=== PATIENT | male | born 2005 | race Two or more races ===

== ENCOUNTER 2025-01-24 17:59 | Emergency (ER) | payer MEDICAID ==
[~2025-01-24] VITALS: Ht 188 cm; Wt 97.6 kg
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
[2025-01-24 21:28] VITALS: BP 111/59; PULSE 86; RESP 16; TEMP 98.6; O2SAT 96
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
[2025-01-24] MEDS ORDERED: IBUP-1456 PO (21:42)
== END 2025-01-24 21:58 | disposition home or self-care (01) ==
LOC: ER 17:59
DX: S76.012A Strain of muscle, fascia and tendon of left hip, initial encounter (principal); S76.912A Strain of unspecified muscles, fascia and tendons at thigh level, left thigh, initial encounter; S50.01XA Contusion of right elbow, initial encounter; V89.2XXA Person injured in unspecified motor-vehicle accident, traffic, initial encounter; Y93.89 Activity, other specified; Y92.410 Unspecified street and highway as the place of occurrence of the external cause; Y99.8 Other external cause status
CPT/HCPCS: 73080; 73502

== ENCOUNTER 2025-03-24 19:23 | Emergency (ER) | payer MEDICAID, OTHER ==
[~2025-03-24] VITALS: Ht 188 cm; Wt 96.3 kg
[2025-03-24 19:37] VITALS: BP 148/67; PULSE 78; RESP 16; TEMP 97.9; O2SAT 96
--- NOTE | 2025-03-24 20:28 | DVH ---
EXAM: XY R HAND 3 VIEW XRAY CLINICAL INDICATION: right hand pain from dog bite TECHNIQUE: XY R HAND 3 VIEW XRAY Comparison: None FINDINGS/IMPRESSION: There is avulsion tough fracture of the right 3rd digit with associated soft tissue injury Remaining osseous structures appear normal The visualized joint space is well maintained. The alignment is anatomical. There is no radiopaque foreign body.
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
[2025-03-24] MEDS ORDERED: AMOX875T4 PO (21:48)
[2025-03-24] MEDS ORDERED: IBUP-1456 PO (21:48)
[2025-03-24] MEDS: TETANUS-DIPTH-ACEL PERTUSSIS 0.5ML SYR Tdap IM ONE (22:26)
[2025-03-24] MEDS: ceFAZolin 1GM/50ML 50 ML IV ONE ×2 (22:36)
[2025-03-24] MEDS: KETOROLAC TROMETH 30 MG/ML 1ML VIAL IV ONE (22:37)
== END 2025-03-24 23:42 | disposition home or self-care (01) ==
LOC: ER 19:29
DX: S61.312A Laceration without foreign body of right middle finger with damage to nail, initial encounter (principal); W54.0XXA Bitten by dog, initial encounter; Y93.89 Activity, other specified; Y92.89 Other specified places as the place of occurrence of the external cause; Y99.8 Other external cause status
CPT/HCPCS: 12001; 73130; 90471; 90715; 96365; 96375; 99284; J0690; J1885

== ENCOUNTER 2025-10-18 18:38 | Emergency (ER) | payer SELFPAY ==
[~2025-10-18] VITALS: Ht 188 cm; Wt 101.1 kg
[~2025-10-18 18:38] MED LIST: AMOX875T4 PO; IBUP-1456 PO
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
[2025-10-18 21:59] VITALS: BP 127/83; PULSE 87; RESP 16; TEMP 98.4; O2SAT 100
[2025-10-18] MEDS: HYDROcodone-ACET 5/325MG TAB PO ONE (21:59)
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
[2025-10-18] MEDS ORDERED: TIZA-142 PO (23:19)
[2025-10-18] MEDS ORDERED: METH4PAK PO (23:19)
== END 2025-10-18 23:29 | disposition home or self-care (01) ==
LOC: ER 18:38
DX: S13.4XXA Sprain of ligaments of cervical spine, initial encounter (principal); S29.012A Strain of muscle and tendon of back wall of thorax, initial encounter; S39.012A Strain of muscle, fascia and tendon of lower back, initial encounter; R51.9 Headache, unspecified; V89.2XXA Person injured in unspecified motor-vehicle accident, traffic, initial encounter; Y93.89 Activity, other specified; Y92.410 Unspecified street and highway as the place of occurrence of the external cause; Y99.8 Other external cause status
CPT/HCPCS: 72040; 72070; 72100